=== PATIENT | female | born 1995 | race Caucasian/White ===

== ENCOUNTER 2024-04-09 06:46 | Emergency (ER) | payer BC ==
[~2024-04-09] VITALS: Ht 167.6 cm; Wt 90.9 kg
[2024-04-09 06:50] VITALS: TEMP 98.6
[2024-04-09 08:38] VITALS: BP 104/70; PULSE 92
== END 2024-04-09 08:38 | disposition home or self-care (01) ==
LOC: COL.ER 06:46
DX: U07.1 COVID-19 (principal); R05.9 Cough, unspecified; J02.9 Acute pharyngitis, unspecified; R09.81 Nasal congestion; R42 Dizziness and giddiness; R11.2 Nausea with vomiting, unspecified